=== PATIENT | female | born 1995 | race Caucasian/White ===

== ENCOUNTER 2018-10-30 15:17 | Emergency (ER) | payer SELFPAY, MEDICAID | END 2018-10-30 17:05 | disposition home or self-care (01) | LOC: FTE 15:17 | DX: S16.1XXA Strain of muscle, fascia and tendon at neck level, initial encounter (principal); S29.002A Unspecified injury of muscle and tendon of back wall of thorax, initial encounter; V49.50XA Passenger injured in collision with unspecified motor vehicles in traffic accident, initial encounter; Y92.9 Unspecified place or not applicable | CPT/HCPCS: 99283 ==

== ENCOUNTER 2018-11-04 21:44 | Emergency (ER) | payer SELFPAY | END 2018-11-05 00:05 | disposition left against medical advice (07) | LOC: FTE 21:44 | DX: Z53.21 Procedure and treatment not carried out due to patient leaving prior to being seen by health care provider (principal) ==